=== PATIENT | female | born 1965 | race Caucasian/White ===

== ENCOUNTER → 2021-09-23 | Outpatient (CLI) | payer OTHER ==
--- NOTE | 2021-09-23 14:01 | RAD ---
EXAM: Lumbar spine, 3 views. HISTORY: Pain. COMPARISON: None. FINDINGS: 3 views of the lumbar spine are obtained. There is a transitional lumbosacral segment, cons idered a partially lumbarized S1 segment for this dictation. 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 There is no significant listhesis. There is multilevel endplate remodeling. There are few endplate Schmorl's nodes, primarily along the inferior endplate o f L1. There is facet arthropathy primarily at the lumbosacral junction. There is mild subchondral scl erosis involving the right greater than left sacroiliac joint. IMPRESSION: 1. No acute osseous finding. 2. Mild multilevel degenerative change. 3. Transitional lumbosacral segment, a normal variant. Electronically signed by: Estelita Calderon MD (09/23/2021 1:59 PM) [id number]
== END ==
LOC: RAD 12:49
PROVIDERS: ATTEND Family Medicine
DX: M47.817 Spondylosis without myelopathy or radiculopathy, lumbosacral region (principal); M51.46 Schmorl's nodes, lumbar region
CPT/HCPCS: 72100